=== PATIENT | female | born 1970 | race Caucasian/White ===

== ENCOUNTER → 2016-12-13 | Outpatient (CLI) | payer BC ==
[~2016-12-13] MED LIST: PRINIVIL10 MG PO; TOPROL XL50 MG PO
== END | disposition short-term general hospital (02) ==
LOC: CLCARD 09:16
DX: Z15.89 Genetic susceptibility to other disease (principal); R07.9 Chest pain, unspecified; E66.9 Obesity, unspecified

== ENCOUNTER → 2017-01-01 | Outpatient (CLI) | payer BC | END | disposition short-term general hospital (02) | LOC: CLORTH 10:50 | DX: M75.51 Bursitis of right shoulder (principal) | CPT/HCPCS: J1100; J2795 ==

== ENCOUNTER 2017-05-23 03:04 | Emergency (ER) | payer BC ==
[~2017-05-23] VITALS: Ht 170.2 cm; Wt 120.2 kg
[2017-05-23] MEDS ORDERED: TOPROL XL50 MG PO (03:24)
[2017-05-23] MEDS ORDERED: PRINIVIL10 MG PO (03:25)
== END 2017-05-23 04:02 | disposition short-term general hospital (02) ==
LOC: ER 03:04
DX: M25.511 Pain in right shoulder (principal); I10 Essential (primary) hypertension; Z79.899 Other long term (current) drug therapy; Z98.890 Other specified postprocedural states